=== PATIENT | male | born 1970 | race Caucasian/White ===

== ENCOUNTER 2017-09-04 06:47 | Emergency (ER) | payer OTHER ==
[2017-09-04 08:38] LABS: ADD MAN DIFF? NO
[2017-09-04 08:41] LABS: BASO # 0.1 x10^3/uL (0.0-0.2); BASO % 1 % (0-3); EOS # 0.1 x10^3/uL (0.0-0.7); EOS % 1 % (0-3); HEMATOCRIT 41.8 % (39.0-53.0); HEMOGLOBIN 14.1 g/dL (13.0-17.5); LYMPH # 1.9 x10^3/uL (1.0-4.8); LYMPH % 30 % (24-48); MEAN CORPUSCULAR HEMOGLOBIN 31 pg (25-35); MEAN CORPUSCULAR HGB CONC 34 g/dL (31-37); MEAN CORPUSCULAR VOLUME 93 fL (79-100); MONO # 0.6 x10^3/uL (0.0-1.1); MONO % 10 % (0-9); NEUT # 3.7 x10^3uL (1.8-7.7); NEUT % 58 % (31-73); PLATELET COUNT 175 x10^3/uL (140-400); RED BLOOD COUNT 4.51 x10^6/uL (4.30-5.70); RED CELL DISTRIBUTION WIDTH 14.6 % (11.5-14.5); WHITE BLOOD COUNT 6.4 x10^3/uL (4.0-11.0)
[2017-09-04 08:49] LABS: ANION GAP 9 (6-14); BLOOD UREA NITROGEN 9 mg/dL (8-26); CALCIUM 8.3 mg/dL (8.5-10.1); CARBON DIOXIDE 27 mmol/L (21-32); CHLORIDE 104 mmol/L (98-107); CREATININE 0.6 mg/dL (0.7-1.3); GFR 144.4; GLUCOSE 92 mg/dL (70-99); POTASSIUM 3.2 mmol/L (3.5-5.1); SODIUM 140 mmol/L (136-145)
[2017-09-04 09:02] LABS: ETHANOL 359 mg/dL (0-10)
[2017-09-04] MEDS: IPRATRPIUM/ALBUTEROL 0.5/2.5MG 3 ML NEBU. NEB (12:18)
[2017-09-04] MEDS: HEPARIN for IV BOLUS 10,000 UNIT/10 ML VIAL. IV (12:43)
[2017-09-04] MEDS: HEPARIN 25,000UTS/500ML PREMIX 500 ML IV (13:11)
== END 2017-09-04 14:02 | disposition short-term general hospital (02) ==
LOC: ER 14:02
DX: S02.609A Fracture of mandible, unspecified, initial encounter for closed fracture (principal); I82.4Z2 Acute embolism and thrombosis of unspecified deep veins of left distal lower extremity; F10.20 Alcohol dependence, uncomplicated; Z88.1 Allergy status to other antibiotic agents; Z59.0 Homelessness; Y08.89XA Assault by other specified means, initial encounter; Y93.89 Activity, other specified; Y92.89 Other specified places as the place of occurrence of the external cause; Y99.8 Other external cause status
CPT/HCPCS: 36415; 70450; 70486; 71045; 72125; 80048; 85025; 85610; 93971; 94640; 96374; 96375; 99285-25; G0480; J1644; J2060; J7620

== ENCOUNTER 2020-12-20 01:58 | Emergency (ER) | payer MEDICARE, OTHER ==
[~2020-12-20] VITALS: Ht 172.7 cm; Wt 100.0 kg
--- NOTE | 2020-12-20 02:22 | ED.ADGEN ---
Past Medical History Past Medical History: COPD, DVT Additional Past Medical Histor: homelessness and alcoholism further history limited by intoxication Past Surgical History: Other Additional Past Surgical Histo: 'back, jaw, lung' Smoking Status: Unknown if ever smoked Alcohol Use: Heavy Additional Information: states that he wishes to detox, gives no further details Drug Use: Marijuana General Adult EDM: Chief Complaint: ALCOHOL INTOXICATION HPI: HPI: Patient is a 50 year old male brought in by EMS. [place] acting [place]. Patient is intoxicated and is drinking fireball. Patient did not fall. PD on arrival called EMS because patient stated he want to be detox. History limited by patient cooperation. Has not had his Covid vaccine Review of Systems: Review of Systems: All other systems within normal limits except for as noted in the HPI Allergies: Allergies: Allergies Coded Allergies Type Severity Reaction Last Updated Verified amoxicillin Allergy Intermediate 09/04/17 Yes Physical Exam: PE: Constitutional: Well developed, well nourished, no acute distress, non-toxic appearance. [] HENT: Normocephalic, atraumatic, bilateral external ears normal, nose normal. [] Eyes: PERRLA, conjunctiva normal, no discharge. [] Neck: No rigidity, supple, no stridor. [] Cardiovascular: Regular rate and rhythm, brisk cap refill [] Lungs & Thorax: Non labored symmetric respirations, no tachypnea or respiratory distress [] Abdomen: Soft, nondistended. Skin: Warm, dry, no erythema, no rash. [] Back: Unremarkable Extremities: No deformities, range of motion grossly intact, no lower extremity edema [] Neurologic: Alert and oriented X 3, no focal deficits noted. [] Psychologic: Intoxicated Current Patient Data: Labs: Laboratory Tests Test 12/20/20 03:00 White Blood Count 6.6 x10^3/uL (4.0-11.0) Red Blood Count 4.73 x10^6/uL (4.30-5.70) Hemoglobin 15.5 g/dL (13.0-17.5) Hematocrit 44.2 % (39.0-53.0) Mean Corpuscular Volume 94 fL (79-100) Mean Corpuscular Hemoglobin 33 pg (25-35) Mean Corpuscular Hemoglobin Concent 35 g/dL (31-37) Red Cell Distribution Width 14.2 % (11.5-14.5) Platelet Count 239 x10^3/uL (140-400) Neutrophils (%) (Auto) 50 % (31-73) Lymphocytes (%) (Auto) 39 % (24-48) Monocytes (%) (Auto) 9 % (0-9) Eosinophils (%) (Auto) 1 % (0-3) Basophils (%) (Auto) 1 % (0-3) Neutrophils # (Auto) 3.3 x10^3/uL (1.8-7.7) Lymphocytes # (Auto) 2.6 x10^3/uL (1.0-4.8) Monocytes # (Auto) 0.6 x10^3/uL (0.0-1.1) Eosinophils # (Auto) 0.0 x10^3/uL (0.0-0.7) Basophils # (Auto) 0.0 x10^3/uL (0.0-0.2) Urine Collection Type Unknown Urine Color Yellow Urine Clarity Clear Urine pH 6.0 (<5.0-8.0) Urine Specific [place] 1.010 (1.000-1.030) Urine Protein Negative mg/dL (NEG-TRACE) Urine Glucose (UA) Negative mg/dL (NEG) Urine Ketones (Stick) Negative mg/dL (NEG) Urine Blood Negative (NEG) Urine Nitrite Negative (NEG) Urine Bilirubin Negative (NEG) Urine Urobilinogen Dipstick 0.2 mg/dL (0.2 mg/dL) Urine Leukocyte Esterase Negative (NEG) Urine RBC 0 /HPF (0-2) Urine WBC Occ /HPF (0-4) Urine Squamous Epithelial Cells Few /LPF Urine Bacteria 0 /HPF (0-FEW) Urine Hyaline Casts Occasional /HPF Urine Mucus Slight /LPF Sodium Level 140 mmol/L (136-145) Potassium Level 4.0 mmol/L (3.5-5.1) Chloride Level 106 mmol/L (98-107) Carbon Dioxide Level 29 mmol/L (21-32) Anion Gap 5 (6-14) L Blood Urea Nitrogen 13 mg/dL (8-26) Creatinine 0.8 mg/dL (0.7-1.3) Estimated GFR (Cockcroft-Gault) 102.3 BUN/Creatinine Ratio 16 (6-20) Glucose Level 116 mg/dL (70-99) H Calcium Level 8.7 mg/dL (8.5-10.1) Magnesium Level 2.3 mg/dL (1.8-2.4) Total Bilirubin 0.3 mg/dL (0.2-1.0) Aspartate Amino Transferase (AST) 46 U/L (15-37) H Alanine Aminotransferase (ALT) 59 U/L (16-63) Alkaline Phosphatase 84 U/L (46-116) Total Protein 7.3 g/dL (6.4-8.2) Albumin 3.4 g/dL (3.4-5.0) Albumin/Globulin Ratio 0.9 (1.0-1.7) L Urine Opiates Screen Neg (NEG) Urine Methadone Screen Neg (NEG) Urine Barbiturates Neg (NEG) Urine Phencyclidine Screen Neg (NEG) Urine Amphetamine/Methamphetamine Neg (NEG) Urine Benzodiazepines Screen Neg (NEG) Urine Cocaine Screen Neg (NEG) Urine Cannabinoids Screen Neg (NEG) Ethyl Alcohol Level 269 mg/dL (0-10) H Urine Ethyl Alcohol Pos (NEG) Laboratory Tests 12/20/20 03:00 Laboratory Tests 12/20/20 03:00 Vital Signs: Vital Signs Date Time Temp Pulse Resp B/P (MAP) Pulse Ox O2 Delivery O2 Flow Rate FiO2 12/20/20 06:49 90 18 96 Room Air 12/20/20 05:00 2.0 12/20/20 02:03 98.3 98.3 EKG: EKG: [] Heart Score: C/O Chest Pain: No Risk Factors: Risk Factors: DM, Current or recent (<one month) smoker, HTN, HLP, family history of CAD, obesity. Risk Scores: Score 0 - 3: 2.5% MACE over next 6 weeks - Discharge Home Score 4 - 6: 20.3% MACE over next 6 weeks - Admit for Clinical Observation Score 7 - 10: 72.7% MACE over next 6 weeks - Early Invasive Strategies Radiology/Procedures: Radiology/Procedures: [] Course & Med Decision Making: Course & Med Decision Making Pending sobriety and PAT evaluation -- 0600: I received signout from Dr. Figueroa at this time, pending sobriety 0800: Patient now awake and alert, walks with a steady gait, ate a meal tray, appears to be clinically sober, his alcohol is suggestive of clinical sobriety at this time. He was discharged in stable condition DO Juan Carlos Lee Disclaimer: Juan Carlos Disclaimer: This electronic medical record was generated, in whole or in part, using a voice recognition dictation system. Departure Departure Impression: Primary Impression: Alcohol intoxication Disposition: HOME / SELF CARE / HOMELESS Condition: IMPROVED Referrals: NO PCP (PCP) Patient Instructions: Alcohol Intoxication, [id number] ANNIE ASENCIO MD Dec 20, 2020 02:22 JARETT DIXON DO Dec 20, 2020 08:15
[2020-12-20 03:00] VITALS: BP 106/75
[2020-12-20 03:11] LABS: BASO % 1 % (0-3); EOS % 1 % (0-3); HEMATOCRIT 44.2 % (39.0-53.0); HEMOGLOBIN 15.5 g/dL (13.0-17.5); LYMPH # 2.6 x10^3/uL (1.0-4.8); LYMPH % 39 % (24-48); MEAN CORPUSCULAR HEMOGLOBIN 33 pg (25-35); MEAN CORPUSCULAR HGB CONC 35 g/dL (31-37); MEAN CORPUSCULAR VOLUME 94 fL (79-100); MONO # 0.6 x10^3/uL (0.0-1.1); MONO % 9 % (0-9); NEUT # 3.3 x10^3/uL (1.8-7.7); NEUT % 50 % (31-73); PLATELET COUNT 239 x10^3/uL (140-400); RED BLOOD COUNT 4.73 x10^6/uL (4.30-5.70); RED CELL DISTRIBUTION WIDTH 14.2 % (11.5-14.5); WHITE BLOOD COUNT 6.6 x10^3/uL (4.0-11.0)
[2020-12-20 03:23] LABS: CALCIUM 8.7 mg/dL (8.5-10.1); CREATININE 0.8 mg/dL (0.7-1.3); GFR 102.3
[2020-12-20 03:24] LABS: BILIRUBIN,URINE NEGATIVE (NEG); CLARITY,URINE CLEAR; COLOR,URINE YELLOW; NITRITE,URINE NEGATIVE (NEG); PROTEIN,URINE NEGATIVE (NEG-TRACE); UROBILINOGEN,URINE 0.2 mg/dL (0.2 mg/dL)
[2020-12-20 03:28] LABS: ALBUMIN 3.4 g/dL (3.4-5.0); ALBUMIN/GLOBULIN RATIO 0.9 (1.0-1.7); MAGNESIUM 2.3 mg/dL (1.8-2.4); TOTAL BILIRUBIN 0.3 mg/dL (0.2-1.0); TOTAL PROTEIN 7.3 g/dL (6.4-8.2)
[2020-12-20 03:30] LABS: AMPHETAMINE/METHAMPHETAMINE NEG (NEG); BARBITURATES NEG (NEG); BENZODIAZEPINES NEG (NEG); CANNABINOIDS NEG (NEG); COCAINE NEG (NEG); METHADONE NEG (NEG); OPIATES NEG (NEG); PHENCYCLIDINE NEG (NEG)
[2020-12-20 03:39] LABS: BACTERIA,URINE 0 /HPF (0-FEW); RBC,URINE 0 /HPF (0-2); WBC,URINE OCC /HPF (0-4)
[2020-12-20 03:40] LABS: HYALINE CASTS, URINE OCCASIONAL /HPF
[2020-12-20] MEDS ORDERED: CHLO25CA9 PO ×2 (10:21→10:22)
== END 2020-12-20 11:54 | disposition home or self-care (01) ==
LOC: ER 01:58
DX: F10.229 Alcohol dependence with intoxication, unspecified (principal); Y90.8 Blood alcohol level of 240 mg/100 ml or more; J44.9 Chronic obstructive pulmonary disease, unspecified; Z86.718 Personal history of other venous thrombosis and embolism; Z88.1 Allergy status to other antibiotic agents
CPT/HCPCS: 36415; 80053; 80307; 81001; 83735; 85025; 87426; 99283; G0480

== ENCOUNTER 2021-01-20 15:21 | Emergency (ER) | payer MEDICARE ==
[~2021-01-20] VITALS: Ht 175.3 cm; Wt 95.4 kg
[~2021-01-20 15:21] MED LIST: CHLO25CA9 PO
--- NOTE | 2021-01-20 15:40 | PHYS DOC ---
Past Medical History Past Medical History: Alcoholism, COPD, DVT Additional Past Medical Histor: homelessness and alcoholism (JARETT DIXON DO) Past Surgical History: Other Additional Past Surgical Histo: 'back, jaw, lung' (JARETT DIXON DO) Smoking Status: Current Every Day Smoker Alcohol Use: Heavy Drug Use: Marijuana (JARETT DIXON DO) General Adult EDM: Chief Complaint: abdominal pain HPI: HPI: 50-year-old male with a history of severe alcoholism presents to the emergency department complaining of abdominal pain with distention along with chronic cough for the last 5 days. He reports that he had more severe abdominal pain today after drinking alcohol. He admits to drinking approximately half pint of alcohol while on the bus earlier today. He also admits to some nausea vomiting and diarrhea today as well. He admits that his belly is more distended than normal and he states that it feels "full of gas ". He denies any blood in his vomit or stool. He admits to drinking frequently. Denies history of abdominal surgeries. The patient denies fever, chills, chest pain, shortness of breath, urinary symptoms, recent trauma, or any other complaints. (JARETT DIXON DO) Review of Systems: Review of Systems: ROS is otherwise negative except for what was mentioned in the HPI (JARETT DIXON DO) Heart Score: C/O Chest Pain: No (JARETT DIXON DO) Allergies: Allergies: Allergies Coded Allergies Type Severity Reaction Last Updated Verified amoxicillin Allergy Intermediate 09/04/17 Yes (JARETT DIXON DO) Physical Exam: PE: Constitutional: No acute distress, non-toxic appearance. HENT: Atraumatic, bilateral external ears normal, nose normal. Eyes: PERRLA, EOMI, conjunctiva normal, no discharge. Neck: Normal range of motion, supple, no stridor. Cardiovascular: Heart rate regular rhythm. 2+ radial pulses Lungs & Thorax: No respiratory distress, symmetrical expansion. Abdomen: Soft, upper quadrant tenderness to palpation along with epigastric tenderness to palpation, abdomen is mildly distended Skin: Warm, dry. Extremities: No tenderness, no cyanosis, ROM intact, no edema. Neurologic: Alert and oriented X 3, normal motor function, normal sensory function, no focal deficits noted. Non ataxic gait. GCS 15. Psychologic: Affect normal, judgment normal, mood normal. (JARETT DIXON DO) Current Patient Data: Labs: Laboratory Tests Test 01/20/21 15:50 01/20/21 16:27 SARS-CoV-2 Antigen (Rapid) Negative (NEGATIVE) White Blood Count 6.0 x10^3/uL (4.0-11.0) Red Blood Count 4.35 x10^6/uL (4.30-5.70) Hemoglobin 14.1 g/dL (13.0-17.5) Hematocrit 40.5 % (39.0-53.0) Mean Corpuscular Volume 93 fL (79-100) Mean Corpuscular Hemoglobin 33 pg (25-35) Mean Corpuscular Hemoglobin Concent 35 g/dL (31-37) Red Cell Distribution Width 13.7 % (11.5-14.5) Platelet Count 241 x10^3/uL (140-400) Neutrophils (%) (Auto) 47 % (31-73) Lymphocytes (%) (Auto) 43 % (24-48) Monocytes (%) (Auto) 8 % (0-9) Eosinophils (%) (Auto) 1 % (0-3) Basophils (%) (Auto) 1 % (0-3) Neutrophils # (Auto) 2.8 x10^3/uL (1.8-7.7) Lymphocytes # (Auto) 2.6 x10^3/uL (1.0-4.8) Monocytes # (Auto) 0.5 x10^3/uL (0.0-1.1) Eosinophils # (Auto) 0.1 x10^3/uL (0.0-0.7) Basophils # (Auto) 0.1 x10^3/uL (0.0-0.2) Sodium Level 140 mmol/L (136-145) Potassium Level 3.4 mmol/L (3.5-5.1) Chloride Level 105 mmol/L (98-107) Carbon Dioxide Level 23 mmol/L (21-32) Anion Gap 12 (6-14) Blood Urea Nitrogen 12 mg/dL (8-26) Creatinine 0.7 mg/dL (0.7-1.3) Estimated GFR (Cockcroft-Gault) 119.4 BUN/Creatinine Ratio 17 (6-20) Glucose Level 138 mg/dL (70-99) Calcium Level 7.6 mg/dL (8.5-10.1) Total Bilirubin 0.2 mg/dL (0.2-1.0) Aspartate Amino Transf (AST/SGOT) 106 U/L (15-37) Alanine Aminotransferase (ALT/SGPT) 96 U/L (16-63) Alkaline Phosphatase 103 U/L (46-116) Total Protein 6.4 g/dL (6.4-8.2) Albumin 2.9 g/dL (3.4-5.0) Albumin/Globulin Ratio 0.8 (1.0-1.7) Lipase 291 U/L (73-393) Ethyl Alcohol Level 135 mg/dL (0-10) Vital Signs: Vital Signs Date Time Temp Pulse Resp B/P (MAP) Pulse Ox O2 Delivery O2 Flow Rate FiO2 01/20/21 16:35 18 99 Room Air 01/20/21 15:25 98.4 110 22 119/71 (87) 97 Room Air 98.4 (JARETT DIXON DO) Radiology/Procedures: Radiology/Procedures: Single AP view of the chest. Comparison: 09/04/2017. Indication: Chronic cough Findings: Cervical lumbar fusion hardware is reidentified. The heart is not enlarged. There is no pneumothorax or effusion. No air space or interstitial disease. Impression: 1. No acute cardiopulmonary process. Electronically signed by: Graham Jones MD (01/20/2021 4:18 PM) (JARETT DIXON DO) Impression: HISTORY: Abdominal pain and distention. Abdomen findings: Mild chronic anterior wedge L1 vertebral compression fracture. Fusion hardware of the lower thoracic spine. Mild atelectasis lung bases. Elongation right hepatic lobe measuring 23 cm cranial caudal may be hepatomegaly. Spleen size normal craniocaudal length 12 cm. Subtle 3 mm hypodense lesion posterior hepatic lobe image 17, separate 5 mm subtle hypodensity left hepatic lobe image 14 too small to characterize. At the gal lbladder fossa image 41 there is a oval subcapsular 1.2 cm indeterminate hypodensity, the density is not typical of a cyst. At the gastrohepatic ligament there is a round 1.5 cm lymph node or nodule image 19. No additional adenopathy evident. Kidneys, adrenals, gallbladder, pancreas unremarkable. Left upper quadrant region of the omentum demonstrates a 3 cm fat density lesion with dense peripheral calcification typical of chronic fat necrosis. No bowel obstruction. Appendix is negative. No abdominal fluid or adenopathy. Mild calcified plaque of the abdominal aorta and abdominal arteries. There is rectosigmoid colonic wall thickening. Pelvis findings: Bladder, prostate, lower rectum, bones unremarkable. Rectosigmoid wall thickening. IMPRESSION: 1. Mild wall thickening of the rectosigmoid colon raising the possibility of mild changes of colitis. 2. Appendix is negative. 3. Hepatomegaly. There are 3 indeterminate hypodense lesions of the liver largest measuring 1.2 cm at the gallbladder fossa. These could be further assessed with outpatient MR imaging. 4. 1.5 cm solitary enlarged upper abdominal lymph node at the gastrohepatic ligament. 5. Other incidental findings as described above. (NORM GÓMEZ DO) Course & Med Decision Making: Course & Med Decision Making Patient with heavy drinking history, labs and CT were ordered due to complaints of abdominal pain with tenderness. Patient also tachycardic at 110. At the time of signout he was at a heart rate of 100, additional liter of fluid was ordered. CT was pending. Patient was signed out to Dr. Gómez at [address] and reassessment. My Orders - JARETT DIXON DO Procedure Category Date Status Time Vital Signs Monitoring ER 01/20/21 Transmitted 15:35 Blood Pressure ER 01/20/21 Transmitted Monitoring 15:35 Cardiac Monitoring ER 01/20/21 Transmitted 15:35 Cbc W Autod[employer] LAB 01/20/21 Complete 15:35 Ua, Cult If Indicated LAB 01/20/21 Logged 15:35 Lipase LAB 01/20/21 Complete 15:35 Comprehensive LAB 01/20/21 Complete Metabolic Panel 15:35 Drugs Of Abuse Ur LAB 01/20/21 Logged 15:35 Ct Abd Pelv W/ Iv CT 01/20/21 Logged Contrst Only 15:35 Pulse Oximetry: LEXI 01/20/21 In Process Standing Order 15:35 Iv Ringers,Lactated PHA 01/20/21 In Process 1000ml (Iv Lactated 15:45 Fentanyl Pf Vial PHA 01/20/21 Complete (Fentanyl 2ml Vial) 15:45 Sars Cov2 (Inna) LAB 01/20/21 In Process 15:36 Sars Antigen Kiera Rapid LAB 01/20/21 Complete 15:36 Chest Ap Only RAD 01/20/21 Resulted 15:36 Ethanol LAB 01/20/21 Complete 15:37 Iohexol 300 Mg/Ml PHA 01/20/21 Complete (Omnipaque 300 Mg/Ml) 17:00 Contrast Given -- PHA 01/20/21 In Process Info Only (Contrast Gi 17:00 Iv Ringers,Lactated PHA 01/20/21 Logged 1000ml (Iv Lactated 17:45 (JARETT DIXON DO) Course & Med Decision Making Assumed care at shift change disposition pending labs radiologic imaging and reevaluation. Results reviewed and discussed with patient. Patient without acute surgical abdominal findings. Patient without concerning lab abnormalities. Patient's alcohol greater than 100. Patient was observed to collect clinical sobriety. Patient was discharged home with instructions to decrease alcohol intake. Patient referred to follow- up with primary care physician. (NORM GÓMEZ DO) Departure Departure Impression: Primary Impression: Alcohol abuse Additional Impressions: Alcohol intoxication Abdominal pain Disposition: HOME / SELF CARE / HOMELESS Condition: STABLE Referrals: NO PCP (PCP) Patient Instructions: Abdominal Pain, Alcohol Intoxication JARETT DIXON DO Jan 20, 2021 15:40 NORM GÓMEZ DO Jan 20, 2021 18:34
[2021-01-20] MEDS ORDERED: IV RINGERS,LACTATED 1000ML 1,000 ML IV SCH ×2 (15:45→17:45)
[2021-01-20] MEDS ORDERED: fentaNYL PF VIAL 100 MCG/2 ML VIAL IVP ONE (15:45)
--- NOTE | 2021-01-20 16:20 | RAD ---
Single AP view of the chest. Comparison: 09/04/2017. Indication: Chronic cough Findings: Cervical lumbar fusion hardware is reidentified. The heart is not enlarged. There is no pneumothorax or effusion. No air space or interstitial disease. Impression: 1. No acute cardiopulmonary process. Electronically signed by: Graham Jones MD (01/20/2021 4:18 PM) [facility]
[2021-01-20 16:43] LABS: BASO # 0.1 x10^3/uL (0.0-0.2); BASO % 1 % (0-3); EOS # 0.1 x10^3/uL (0.0-0.7); EOS % 1 % (0-3); HEMATOCRIT 40.5 % (39.0-53.0); HEMOGLOBIN 14.1 g/dL (13.0-17.5); LYMPH # 2.6 x10^3/uL (1.0-4.8); LYMPH % 43 % (24-48); MEAN CORPUSCULAR HEMOGLOBIN 33 pg (25-35); MEAN CORPUSCULAR HGB CONC 35 g/dL (31-37); MEAN CORPUSCULAR VOLUME 93 fL (79-100); MONO # 0.5 x10^3/uL (0.0-1.1); MONO % 8 % (0-9); NEUT # 2.8 x10^3/uL (1.8-7.7); NEUT % 47 % (31-73); PLATELET COUNT 241 x10^3/uL (140-400); RED BLOOD COUNT 4.35 x10^6/uL (4.30-5.70); RED CELL DISTRIBUTION WIDTH 13.7 % (11.5-14.5)
[2021-01-20 17:00] LABS: CALCIUM 7.6 mg/dL (8.5-10.1); CREATININE 0.7 mg/dL (0.7-1.3); GFR 119.4; POTASSIUM 3.4 mmol/L (3.5-5.1)
[2021-01-20] MEDS ORDERED: IOHEXOL 300 MG/ML 100ML VIAL. IV ONE (17:00)
[2021-01-20] MEDS ORDERED: CONTRAST GIVEN. MC PRN (17:00)
[2021-01-20 17:06] LABS: ALBUMIN 2.9 g/dL (3.4-5.0); ALBUMIN/GLOBULIN RATIO 0.8 (1.0-1.7); TOTAL BILIRUBIN 0.2 mg/dL (0.2-1.0); TOTAL PROTEIN 6.4 g/dL (6.4-8.2)
--- NOTE | 2021-01-20 18:24 | RAD ---
CT abdomen and pelvis with contrast PQRS statement: CT scans at this facility use dose reduction including either automated exposure cont rol, iterative reconstructions, and /or weight based radiation dosing via mA and kV modification when appropriate to reduce radiation dose to as low as reasonably achievable. Contrast: 75 mL Isovue-370 intravenous contrast. HISTORY: Abdominal pain and distention. Abdomen findings: Mild chronic anterior wedge L1 vertebral compression fracture. Fusion hardware of t he lower thoracic spine. Mild atelectasis lung bases. Elongation right hepatic lobe measuring 23 cm c ranial caudal may be hepatomegaly. Spleen size normal craniocaudal length 12 cm. Subtle 3 mm hypodens e lesion posterior hepatic lobe image 17, separate 5 mm subtle hypodensity left hepatic lobe image 14 too small to characterize. At the gallbladder fossa image 41 there is a oval subcapsular 1.2 cm inde terminate hypodensity, the density is not typical of a cyst. At the gastrohepatic ligament there is a round 1.5 cm lymph node or nodule image 19. No additional adenopathy evident. Kidneys, adrenals, gal lbladder, pancreas unremarkable. Left upper quadrant region of the omentum demonstrates a 3 cm fat de nsity lesion with dense peripheral calcification typical of chronic fat necrosis. No bowel obstructio n. Appendix is negative. No abdominal fluid or adenopathy. Mild calcified plaque of the abdominal aor ta and abdominal arteries. There is rectosigmoid colonic wall thickening. Pelvis findings: Bladder, prostate, lower rectum, bones unremarkable. Rectosigmoid wall thickening. IMPRESSION: 1. Mild wall thickening of the rectosigmoid colon raising the possibility of mild changes of colitis. 2. Appendix is negative. 3. Hepatomegaly. There are 3 indeterminate hypodense lesions of the liver largest measuring 1.2 cm at the gallbladder fossa. These could be further assessed with outpatient MR imaging. 4. 1.5 cm solitary enlarged upper abdominal lymph node at the gastrohepatic ligament. 5. Other incidental findings as described above. Electronically signed by: Joseph Adamson MD (01/20/2021 6:22 PM) [facility]
[2021-01-20 19:14] LABS: BILIRUBIN,URINE NEGATIVE (NEG); CLARITY,URINE CLEAR; COLOR,URINE YELLOW; NITRITE,URINE NEGATIVE (NEG); PROTEIN,URINE NEGATIVE (NEG-TRACE); UROBILINOGEN,URINE 0.2 mg/dL (0.2 mg/dL)
[2021-01-20 19:22] LABS: BACTERIA,URINE 0 /HPF (0-FEW); RBC,URINE 0 /HPF (0-2); WBC,URINE 0 /HPF (0-4)
[2021-01-20 19:27] LABS: AMPHETAMINE/METHAMPHETAMINE NEG (NEG); BARBITURATES NEG (NEG); BENZODIAZEPINES NEG (NEG); CANNABINOIDS NEG (NEG); COCAINE NEG (NEG); METHADONE NEG (NEG); OPIATES NEG (NEG); PHENCYCLIDINE NEG (NEG)
[2021-01-20 19:58] VITALS: BP 125/76
== END 2021-01-20 20:05 | disposition home or self-care (01) ==
LOC: ER 15:21
DX: F10.229 Alcohol dependence with intoxication, unspecified (principal); R10.33 Periumbilical pain; R11.2 Nausea with vomiting, unspecified; R19.7 Diarrhea, unspecified; J44.9 Chronic obstructive pulmonary disease, unspecified; F17.200 Nicotine dependence, unspecified, uncomplicated; Z20.822 Contact with and (suspected) exposure to COVID-19; Z86.718 Personal history of other venous thrombosis and embolism; Z88.1 Allergy status to other antibiotic agents; Y90.6 Blood alcohol level of 120-199 mg/100 ml
CPT/HCPCS: 36415; 71045; 74177; 80053; 80307; 81001; 83690; 85025; 87426; 96361; 96374; 99285; G0480; J3010; J7120; Q9967; U0003; U0005

== ENCOUNTER 2021-01-27 15:37 | Emergency (ER) | payer MEDICARE ==
[~2021-01-27] VITALS: Ht 177.8 cm; Wt 104.0 kg
[2021-01-27] MEDS ORDERED: IV NORMAL SALINE 1000ML BAG 1,000 ML IV ONE (16:00)
[2021-01-27 16:12] LABS: BASO % 1 % (0-3); EOS % 0 % (0-3); HEMATOCRIT 39.4 % (39.0-53.0); HEMOGLOBIN 13.9 g/dL (13.0-17.5); LYMPH # 2.3 x10^3/uL (1.0-4.8); LYMPH % 40 % (24-48); MEAN CORPUSCULAR HEMOGLOBIN 33 pg (25-35); MEAN CORPUSCULAR HGB CONC 35 g/dL (31-37); MEAN CORPUSCULAR VOLUME 93 fL (79-100); MONO # 0.7 x10^3/uL (0.0-1.1); MONO % 12 % (0-9); NEUT # 2.8 x10^3/uL (1.8-7.7); NEUT % 47 % (31-73); PLATELET COUNT 165 x10^3/uL (140-400); RED BLOOD COUNT 4.22 x10^6/uL (4.30-5.70); RED CELL DISTRIBUTION WIDTH 14.2 % (11.5-14.5); WHITE BLOOD COUNT 5.8 x10^3/uL (4.0-11.0)
[2021-01-27] MEDS ORDERED: DIPHENOXYLATE/ATROPINE TABLET. PO ONE (16:30)
[2021-01-27 16:32] LABS: ALBUMIN 2.6 g/dL (3.4-5.0); ALBUMIN/GLOBULIN RATIO 0.8 (1.0-1.7); CALCIUM 7.4 mg/dL (8.5-10.1); CREATININE 0.7 mg/dL (0.7-1.3); GFR 119.4; TOTAL BILIRUBIN 0.5 mg/dL (0.2-1.0)
[2021-01-27 16:37] LABS: POTASSIUM 2.8 mmol/L (3.5-5.1)
[2021-01-27] MEDS ORDERED: POTASSIUM CHLORIDE 10 MEQ TABLET.ER. PO ONE (16:45)
--- NOTE | 2021-01-27 17:05 | PHYS DOC ---
Past Medical History Past Medical History: Alcoholism, COPD, DVT Additional Past Medical Histor: homelessness and alcoholism Past Surgical History: Other Additional Past Surgical Histo: multiple orthopedic surgeries Smoking Status: Current Every Day Smoker Alcohol Use: Heavy Drug Use: Marijuana Adult General Chief Complaint Chief Complaint: ALCOHOL INTOXICATION [facility] HPI Patient is a 50 year old male who presents with abdominal pain. The patient complains of diffuse abdominal pain with some distention. He has been having symptoms over the last week. He also complains of frequent watery diarrhea stools which have become severe causing him at sometimes to be incontinent of stool. He was evaluated in this ER couple of days earlier for the same complaint. At that time, he had normal labs and normal CT scan of the abdomen pelvis. Symptoms are not worse today but have not improved. No fever. He does complain of some nausea with intermittent vomiting but also has been able to hold down food. Currently homeless and is admitted to be an alcoholic. Normally drinks 1 L of vodka daily. Over the last several days has diminished his alcohol intake to 2 pints daily. Review of Systems Review of Systems Constitutional: Denies fever or chills Eyes: Denies change in visual acuity HENT: Denies nasal congestion or sore throat Respiratory: Denies cough or shortness of breath Cardiovascular: No additional information not addressed in HPI GI: as documented in HPI : Denies dysuria Musculoskeletal: Denies back pain or joint pain Integument: Denies rash or skin lesions Neurologic: Denies Endocrine: Denies All other systems were reviewed and found to be within normal limits, except as documented in this note. Current Medications Current Medications Current Medications Medications (Trade) Dose Ordered Sig/Catracho Start Time Stop Time Status Last Admin Dose Admin Diphenoxylate HCl/ Atropine (Lomotil) 2 tab 1X ONCE 01/27/21 16:30 01/27/21 16:45 DC 01/27/21 17:01 2 TAB Potassium Chloride (Klor-Con) 40 meq 1X ONCE 01/27/21 16:45 01/27/21 16:46 DC 01/27/21 16:45 40 MEQ Sodium Chloride 1,000 ml @ 1,000 mls/hr 1X ONCE 01/27/21 16:00 01/27/21 16:59 DC 01/27/21 16:00 1,000 MLS/HR Allergies Allergies Allergies Coded Allergies Type Severity Reaction Last Updated Verified amoxicillin Allergy Intermediate 09/04/17 Yes Physical Exam Physical Exam Constitutional: Well developed, well nourished, no acute distress, non-toxic appearance. HENT: Normocephalic, atraumatic, bilateral external ears normal, oropharynx moist Eyes: PERRLA, EOMI, conjunctiva normal Neck: Normal range of motion Cardiovascular:Heart rate regular rhythm, no murmur Lungs & Thorax: Bilateral breath sounds clear to auscultation Abdomen: Bowel sounds normal, soft, no tenderness Skin: Warm, dry, no erythema, no rash. Back: No tenderness, no CVA tenderness. Extremities: No tenderness Neurologic: Alert and oriented X 3 Psychologic: Affect normal Current Patient Data Vital Signs Vital Signs Date Time Temp Pulse Resp B/P (MAP) Pulse Ox O2 Delivery O2 Flow Rate FiO2 01/27/21 15:54 98.5 87 15 136/78 (97) 94 Room Air 98.5 Lab Values Laboratory Tests Test 01/27/21 15:50 White Blood Count 5.8 x10^3/uL (4.0-11.0) Red Blood Count 4.22 x10^6/uL (4.30-5.70) L Hemoglobin 13.9 g/dL (13.0-17.5) Hematocrit 39.4 % (39.0-53.0) Mean Corpuscular Volume 93 fL (79-100) Mean Corpuscular Hemoglobin 33 pg (25-35) Mean Corpuscular Hemoglobin Concent 35 g/dL (31-37) Red Cell Distribution Width 14.2 % (11.5-14.5) Platelet Count 165 x10^3/uL (140-400) Neutrophils (%) (Auto) 47 % (31-73) Lymphocytes (%) (Auto) 40 % (24-48) Monocytes (%) (Auto) 12 % (0-9) H Eosinophils (%) (Auto) 0 % (0-3) Basophils (%) (Auto) 1 % (0-3) Neutrophils # (Auto) 2.8 x10^3/uL (1.8-7.7) Lymphocytes # (Auto) 2.3 x10^3/uL (1.0-4.8) Monocytes # (Auto) 0.7 x10^3/uL (0.0-1.1) Eosinophils # (Auto) 0.0 x10^3/uL (0.0-0.7) Basophils # (Auto) 0.0 x10^3/uL (0.0-0.2) Sodium Level 135 mmol/L (136-145) L Potassium Level 2.8 mmol/L (3.5-5.1) *L Chloride Level 101 mmol/L (98-107) Carbon Dioxide Level 24 mmol/L (21-32) Anion Gap 10 (6-14) Blood Urea Nitrogen 7 mg/dL (8-26) L Creatinine 0.7 mg/dL (0.7-1.3) Estimated GFR (Cockcroft-Gault) 119.4 BUN/Creatinine Ratio 10 (6-20) Glucose Level 152 mg/dL (70-99) H Calcium Level 7.4 mg/dL (8.5-10.1) L Total Bilirubin 0.5 mg/dL (0.2-1.0) Aspartate Amino Transferase (AST) 109 U/L (15-37) H Alanine Aminotransferase (ALT) 95 U/L (16-63) H Alkaline Phosphatase 145 U/L (46-116) H Total Protein 6.0 g/dL (6.4-8.2) L Albumin 2.6 g/dL (3.4-5.0) L Albumin/Globulin Ratio 0.8 (1.0-1.7) L Amylase Level 68 U/L (25-115) Laboratory Tests 01/27/21 15:50 Laboratory Tests 01/27/21 15:50 EKG EKG [] Radiology/Procedures Radiology/Procedures [] Course & Med Decision Making Course & Med Decision Making Pertinent Labs and Imaging studies reviewed. (See chart for details) Patient is evaluated on arrival to his room. He is in no acute distress. Abdominal exam is entirely benign. I did review his most recent records and do not feel today that a repeat CT of the abdomen is indicated based on his exam and the fact that he recently had negative CT. We will check labs today and give IV fluids and Zofran. 17:00: Patient is requesting food. Labs are reviewed. No acute findings other than he is noted to have mildly depressed potassium of 2.8. Will give p.o. replacement. Also given a dose of Lomotil to help with his diarrhea. 17:45: Labs reviewed. No acute findings that would require emergent attention. Patient is much improved. He is ambulating mouth department with a steady gait to use the restroom. He was given p.o. potassium and also food. Stable for discharge home. Recommend to stop drinking. Come back to the ER as needed. Dragon Disclaimer Dragon Disclaimer This electronic medical record was generated, in whole or in part, using a voice recognition dictation system. Departure Departure Disposition: HOME / SELF CARE / HOMELESS Condition: IMPROVED Referrals: NO PCP (PCP) Patient Instructions: Gastritis, Adult RAI GONSALEZ DO Jan 27, 2021 17:05
[2021-01-27 17:55] VITALS: BP 136/80
== END 2021-01-27 17:56 | disposition home or self-care (01) ==
LOC: ER 15:37
DX: R10.84 Generalized abdominal pain (principal); J44.9 Chronic obstructive pulmonary disease, unspecified; F17.200 Nicotine dependence, unspecified, uncomplicated; Z86.718 Personal history of other venous thrombosis and embolism; F10.20 Alcohol dependence, uncomplicated; Y90.9 Presence of alcohol in blood, level not specified; Z88.1 Allergy status to other antibiotic agents
CPT/HCPCS: 36415; 80053; 82150; 85025; 96360; 96361; 99283; J7030; 99285-25

== ENCOUNTER 2021-06-28 04:30 | Emergency (ER) | payer MEDICARE, OTHER ==
[2021-05-22 11:00] VITALS: BP 119/76
[~2021-06-28] VITALS: Ht 177.8 cm; Wt 100.0 kg
--- NOTE | 2021-06-28 05:28 | PHYS DOC ---
Past Medical History Past Medical History: Alcoholism, COPD, DVT Additional Past Medical Histor: homeless/alcoholism (LATIA RAMOS MD) Past Surgical History: Other Additional Past Surgical Histo: multiple orthopedic surgeries/BACK SURG (LATIA RAMOS MD) Smoking Status: Current Every Day Smoker Alcohol Use: Heavy Drug Use: Marijuana (LATIA RAMOS MD) Adult General Chief Complaint Chief Complaint: ALCOHOL INTOXICATION HPI HPI The patient is a 51-year-old undomiciled alcoholic who presents via EMS for medical screening after police were called by convenient store personnel who noticed that he was passed out next to a dumpster on their property. Patient did not answer questions appropriately for police so EMS were called and transported the patient here. Upon arrival to the emergency department patient is alert and responsive, moving all extremities equally, and smells strongly of alcohol. A backpack with him is full of alcohol bottles. Patient is somnolent but able to deny pain anywhere. He otherwise does not contribute meaningfully to history. Blood glucose is appropriate here. (LATIA RAMOS MD) Review of Systems Review of Systems Unable to obtain review of systems secondary to heavily intoxicated patient. (LATIA RAMOS MD) Allergies Allergies Allergies Coded Allergies Type Severity Reaction Last Updated Verified amoxicillin Allergy Intermediate 09/04/17 Yes (ADRY SOFIA DO) Physical Exam Physical Exam Obese male appearing nontoxic and in no acute distress. Head is normocephalic and atraumatic. Neck is supple and nontender. Oropharynx is moist. Lungs are clear to auscultation at all stations. There is a normal S1 and S2 without rubs or gallops and capillary refill is appropriate, less than 2 seconds globally. Abdomen is soft, nontender and obese. Skin is warm and dry without cyanosis, clubbing or edema. Psychiatrically, the patient demonstrates appropriate mood and affect and is alert. Neurologically, patient moves all extremities equally, is alert and responsive, though somnolent, and no lateralizing deficits are seen. Evaluation of the extremities reveals BUEs and BLEs neurovascularly intact distally with strength out of 5, sensation intact light touch in all nerve distributions, radial, DP and PT pulses 2+ and equal bilaterally, capillary refill less than 2 seconds, hands and feet warm and well-perfused. (LATIA RAMOS MD) Current Patient Data Vital Signs Vital Signs Date Time Temp Pulse Resp B/P (MAP) Pulse Ox O2 Delivery O2 Flow Rate FiO2 06/28/21 04:40 97.4 80 20 97.4 (ADRY SOFIA DO) Lab Values Laboratory Tests Test 06/28/21 04:44 Glucose (Fingerstick) 123 mg/dL (70-99) H (ADRY SOFIA DO) EKG EKG [] (LATIA RAMOS MD) Radiology/Procedures Radiology/Procedures [] (LATIA RAMOS MD) Course & Med Decision Making Course & Med Decision Making 51-year-old intoxicated gentleman presenting for medical screening. Not clinically sober and not steady on his feet. Will allow him to rest and sober and will then reevaluate. 0600: Transition of care to Dr. Sofia pending clinical sobriety and reassessment for disposition. (LATIA RAMOS MD) Course & Med Decision Making 12:15 PM the patient has been sleeping throughout the morning. I made multiple attempts to awaken the patient and he shifted in his bed and moaned however he did not provide any meaningful communication at that time. Ultimately nursing staff went in to arouse the patient for discharge and the patient became verbally combative. At that time the patient awakened from the bed and began to be physically threatening. Security was contacted and has supervised the patient's discharge as he will be escorted from the emergency department whereby he may remain in the waiting room. The patient is homeless as has been reported. He has been advised to stop drinking. He is nontoxic-appearing and awaiting discharge. (ADRY SOFIA DO) Dragon Disclaimer Dragon Disclaimer This electronic medical record was generated, in whole or in part, using a voice recognition dictation system. (LATIA RAMOS MD) Departure Departure Impression: Primary Impression: Alcohol intoxication in active alcoholic Disposition: 01 HOME / SELF CARE / HOMELESS Condition: STABLE Referrals: NO PCP (PCP) Patient Instructions: Alcohol Intoxication Problem Qualifiers Primary Impression: Alcohol intoxication in active alcoholic Complication of substance-induced condition: uncomplicated Qualified Codes: F10.220 - Alcohol dependence with intoxication, uncomplicated LATIA RAMOS MD Jun 28, 2021 05:28 ADRY SOFIA DO Jun 28, 2021 11:12
== END 2021-06-28 12:25 | disposition home or self-care (01) ==
LOC: ER 04:30
DX: F10.220 Alcohol dependence with intoxication, uncomplicated (principal); Y90.9 Presence of alcohol in blood, level not specified; J44.9 Chronic obstructive pulmonary disease, unspecified; Z86.718 Personal history of other venous thrombosis and embolism; Z59.00 Homelessness unspecified; F17.200 Nicotine dependence, unspecified, uncomplicated; Z88.1 Allergy status to other antibiotic agents
CPT/HCPCS: 82962; 99284